=== PATIENT | female | born 1990 | race African-American/Black ===

== ENCOUNTER 2016-09-17 23:35 | Emergency (ER) | payer MEDICAID ==
[~2016-09-17] VITALS: Ht 154.9 cm; Wt 76.0 kg
[~2016-09-17 23:35] MED LIST: ERYT400T4 PO; FERR325T PO; MECL-62 PO
[2016-09-17 23:37] VITALS: BP 118/78; PULSE 120; RESP 20; TEMP 98.3; O2SAT 98
[2016-09-18] MEDS ORDERED: SODIUM CHLOR 0.9% 1000 ML INJ 1,000 ML IV ONE ×2
[2016-09-18] MEDS ORDERED: ONDANSETRON HCL 4 MG/2 ML VIAL IV PUSH ONE
[2016-09-18] MEDS ORDERED: THIAMINE INJ 100 MG in SODIUM CHLORIDE 0.9% INJ 100 ML IV ONE ×2
[2016-09-18 00:30] LABS: AUTOMATED NEUTROPHIL # 10.4 TH/MM3 (1.8-7.7); BASOPHIL % 0.3 % (0.0-2.0); EOSINOPHIL % 0.1 % (0.0-4.0); HEMATOCRIT 31.6 % (35.0-46.0); HEMO FLAGS DIFF FINAL; LYMPH % 9.4 % (9.0-44.0); LYMPHOCYTE # 1.2 TH/MM3 (1.0-4.8); MEAN CELL VOLUME 84.5 FL (80.0-100.0); MEAN CORPUSCULAR HEMOGLOBIN 28.5 PG (27.0-34.0); MEAN CORPUSCULAR HGB CONC 33.8 % (32.0-36.0); MONO % 10.1 % (0.0-8.0); NEUT % 80.1 % (16.0-70.0); PLATELET COUNT 235 TH/MM3 (150-450); RED BLOOD COUNT 3.74 MIL/MM3 (4.00-5.30); RED CELL DISTRIBUTION WIDTH 14.4 % (11.6-17.2)
[2016-09-18 01:04] LABS: BACTERIA, URINE MANY /hpf; BLOOD, URINE LARGE (NEG); COMMENT (UR) CULTURE INDICATED; CULTURE IF INDICATED CULTURE INDICATED; GLUCOSE,URINE 300 mg/dL (NEG); KETONE, URINE 150 mg/dL (NEG); MUCUS URINE FEW /lpf (OCC); NITRITE,URINE NEG (NEG); SQUAMOUS EPITHELIAL CELL URINE 6 /hpf (0-5); URINE COLOR YELLOW (YELLW/STRAW)
[2016-09-18 01:12] LABS: ALT (GPT) 18 U/L (10-53); ANION GAP 12 MEQ/L (5-15); AST (GOT) 16 U/L (15-37); BICARBONATE 20.8 MEQ/L (21.0-32.0); BLOOD UREA NITROGEN 5 MG/DL (7-18); CHLORIDE 104 MEQ/L (98-107); GLOMERULAR FILTRATION RATE 121 ML/MIN (>89); POTASSIUM 3.4 MEQ/L (3.5-5.1); SODIUM (NA) 137 MEQ/L (136-145)
[2016-09-18 01:15] LABS: ALKALINE PHOSPHATASE 81 U/L (45-117); TOTAL BILIRUBIN ADULT 0.6 MG/DL (0.2-1.0)
[2016-09-18] MEDS ORDERED: ZOFR4TAB3 SL (01:39)
--- NOTE | 2016-09-18 01:40 | PD ---
HPI Chief Complaint: GI Complaint Time Seen by Provider: 23:50 Travel History International Travel<30 days: No Contact w/Intl Traveler<30days: No Traveled to known affect area: No History of Present Illness HPI Social 26-year-old woman who presents to the emergency department, 2 para 1 at about 30 weeks gestation presenting with nausea vomiting and flulike symptoms. She was seen at the hospital yesterday was diagnosed with influenza based on a nasal wash. She states that she's had ongoing nausea vomiting and unable to keep anything down. She isn't really felt the baby move. She does presented to the emergency department. No real bleeding cramping or leakage of fluid. No other complaints. History Past Medical History Medical History: Denies Significant Hx Tetanus Vaccination: Unknown Influenza Vaccination: No : 3 Para: 1 Social History Alcohol Use: No Tobacco Use: No Allergies-Medications (Allergen,Severity, Reaction): Coded Allergies: No Known Allergies (Verified , 09/17/16) Reported Meds & Prescriptions Reported Meds & Active Scripts Active No Active Prescriptions or Reported Medications Review of Systems Except as stated in HPI: all other systems reviewed are Neg Physical Exam Narrative GENERAL: Well-appearing 26-year-old woman. SKIN: Warm and dry. HEAD: Atraumatic. Normocephalic. NECK: Trachea midline. No JVD. CARDIOVASCULAR: Regular rate and rhythm. No murmur appreciated. RESPIRATORY: No accessory muscle use. Clear to auscultation. Breath sounds equal bilaterally. GASTROINTESTINAL: Abdomen soft, non-tender, nondistended. Gravid. Hepatic and splenic margins not palpable. MUSCULOSKELETAL: No obvious deformities. No edema. NEUROLOGICAL: Awake and alert. No obvious cranial nerve deficits. Motor grossly within normal limits. Normal speech. PSYCHIATRIC: Appropriate mood and affect; insight and judgment normal. Data Data Last Documented VS Vital Signs Date Time Temp Pulse Resp B/P Pulse Ox O2 Delivery O2 Flow Rate FiO2 09/17/16 23:37 98.3 120 20 118/78 98 Orders Complete Blood Count With Diff (09/17/16 23:55) Comprehensive Metabolic Panel (09/17/16 23:55) Iv Access Insert/Monitor (09/17/16 23:55) Urinalysis - C+S If Indicated (09/17/16 23:55) Ed Poc Ultrasound (09/17/16 ) Sodium Chlor 0.9% 1000 Ml Inj (Ns 1000 M (09/18/16 00:00) Sodium Chlor 0.9% 1000 Ml Inj (Ns 1000 M (09/18/16 00:00) Thiamine Inj (Thiamine Inj) (09/18/16 00:00) Ondansetron Inj (Zofran Inj) (09/18/16 00:00) Urine Culture (09/18/16 00:16) Labs Laboratory Tests Test 09/18/16 00:16 White Blood Count 13.0 TH/MM3 Red Blood Count 3.74 MIL/MM3 Hemoglobin 10.7 GM/DL Hematocrit 31.6 % Mean Corpuscular Volume 84.5 FL Mean Corpuscular Hemoglobin 28.5 PG Mean Corpuscular Hemoglobin 33.8 % Concent Red Cell Distribution Width 14.4 % Platelet Count 235 TH/MM3 Mean Platelet Volume 8.9 FL Neutrophils (%) (Auto) 80.1 % Lymphocytes (%) (Auto) 9.4 % Monocytes (%) (Auto) 10.1 % Eosinophils (%) (Auto) 0.1 % Basophils (%) (Auto) 0.3 % Neutrophils # (Auto) 10.4 TH/MM3 Lymphocytes # (Auto) 1.2 TH/MM3 Monocytes # (Auto) 1.3 TH/MM3 Eosinophils # (Auto) 0.0 TH/MM3 Basophils # (Auto) 0.0 TH/MM3 CBC Comment DIFF FINAL Differential Comment Urine Color YELLOW Urine Turbidity HAZY Urine pH 6.0 Urine Specific [place] 1.026 Urine Protein 100 mg/dL Urine Glucose (UA) 300 mg/dL Urine Ketones 150 mg/dL Urine Occult Blood LARGE Urine Nitrite NEG Urine Bilirubin NEG Urine Urobilinogen 2.0 MG/DL Urine Leukocyte Esterase TRACE Urine RBC /hpf Urine WBC 6 /hpf Urine Squamous Epithelial 6 /hpf Cells Urine Bacteria MANY /hpf Urine Mucus FEW /lpf Microscopic Urinalysis Comment CULTURE INDICATED Sodium Level 137 MEQ/L Potassium Level 3.4 MEQ/L Chloride Level 104 MEQ/L Carbon Dioxide Level 20.8 MEQ/L Anion Gap 12 MEQ/L Blood Urea Nitrogen 5 MG/DL Creatinine 0.71 MG/DL Estimat Glomerular Filtration 121 ML/MIN Rate Random Glucose 116 MG/DL Calcium Level 8.9 MG/DL Total Bilirubin 0.6 MG/DL Aspartate Amino Transf 16 U/L (AST/SGOT) Alanine Aminotransferase 18 U/L (ALT/SGPT) Alkaline Phosphatase 81 U/L Total Protein 7.4 GM/DL Albumin 2.7 GM/DL [facility] Medical Decision Making Medical Screen Exam Complete: Yes Emergency Medical Condition: Yes Interpretation(s) LABS: CBC remarkable for mild leukocytosis, mild anemia. CMP is unremarkable. UA with innumerable red blood cells. Culture pending. Differential Diagnosis Dehydration, influenza, myalgias, other Narrative Course Medical decision making 26 year-old woman at about 30 weeks a station presents with nausea vomiting in setting of known influenza. Visual looks well. Does not appear overtly dehydrated. Bedside ultrasound reassuring. Labs are unremarkable. She'll little bit of spotting and the blood in her urine is likely contaminated. Culture is pending. Recommend outpatient follow-up with her OB. Diagnosis Primary Impression: Nausea & vomiting Qualified Code: R11.2 - Non-intractable vomiting with nausea, unspecified vomiting type Additional Impressions: Influenza Qualified Code: Z3A.30 - 30 weeks gestation of Additional Instructions: Follow-up with your OB doctor, preferably by phone if you're still sick. Return to the emergency department for any new or worsening symptoms. Take Tamiflu as prescribed. Use Zofran as needed for nausea or vomiting. Med/Other Pt SpecificInfo: Prescription(s) given Scripts Ondansetron Odt (Zofran Odt)4 Mg Tab4 Mg SL Q8HR PRN (Nausea/Vomiting) #15 TAB May substitute non-ODT form. Prov:Travis Edgar MD 09/18/16 Disposition: 01 DISCHARGE HOME Condition: Stable Travis Edgar MD Sep 18, 2016 01:40
[2016-09-18] MEDS ORDERED: FAMOTIDINE 20 MG TAB PO ONE (01:45)
[2016-09-18] MEDS ORDERED: ONDANSETRON ODT 4 MG TAB PO ONE (01:45)
== END 2016-09-18 02:43 | disposition home or self-care (01) ==
LOC: NEPE 23:35
DX: O21.8 Other vomiting complicating pregnancy (principal); J10.89 Influenza due to other identified influenza virus with other manifestations; O99.513 Diseases of the respiratory system complicating pregnancy, third trimester; Z3A.30 30 weeks gestation of pregnancy; B96.89 Other specified bacterial agents as the cause of diseases classified elsewhere
CPT/HCPCS: 80053; 81001; 85025; 87086; 96365; 96375; 99284; J2405; J3411; J7030

== ENCOUNTER 2016-11-11 21:16 | Emergency (ER) | payer MEDICAID ==
[~2016-11-11 21:16] MED LIST changes: -ERYT400T4 PO; -FERR325T PO; -MECL-62 PO; +ZOFR4TAB3 SL
[2016-11-11] MEDS ORDERED: oxyCODONE/ACETAMINOPHEN 10 MG/325 MG TAB PO STA (23:53)
[2016-11-11] MEDS ORDERED: OXYC1TAB35 PO (23:56)
--- NOTE | 2016-11-12 00:03 | PD ---
HPI Chief Complaint Pulled her groin muscle Date Seen: Nov 11, 2016 Time Seen: 23:57 Travel History International Travel<30 Days: No Contact w/Intl Traveler<30Days: No Known Affected Area: No History of Present Illness HPI 26-year-old who is at 34 weeks and 4 days. Patient was running from a dog and slipped and fell like she did the splits. A short time thereafter she felt out quite a bit of pain in the groin and between her thighs in her muscles. This had time she has been fairly stiff making it difficult for her to walk. Denies abdominal trauma, and patient did not actually fall, and denies vaginal bleeding or discharge. She's had great movement Para: 1 : 2 Last Menstrual Period: Nov 11, 2016 History Obstetric History Obstetric History section Past Surgical History Narrative Surgical section Family History Family History: Negative Social History Alcohol Use: No Tobacco Use: No Substance Abuse: No Allergies-Medications (Allergen,Severity, Reaction): Coded Allergies: No Known Allergies (Verified , 09/17/16) Home Meds Active Scripts Oxycodone-Acetaminophen 7.5-325 mg Tab1 Tab PO Q6H PRN (PAIN) #10 TAB Ref 0 Prov:Celia Umana MD 11/11/16 Ondansetron Odt (Zofran Odt)4 Mg Tab4 Mg SL Q8HR PRN (Nausea/Vomiting) #15 TAB May substitute non-ODT form. Prov:Travis Edgar MD 09/18/16 Review of Systems Except as stated in HPI: all other systems reviewed are Neg Physical Exam Narrative GENERAL: Well-nourished, well-developed patient. SKIN: Warm and dry. HEAD: Normocephalic and atraumatic. EYES: No scleral icterus. No injection or drainage. ENT: No nasal drainage noted. Mucous membranes pink. Airway patent. NECK: Supple, trachea midline. No JVD. CARDIOVASCULAR: Regular rate and rhythm without murmurs, gallops, or rubs. RESPIRATORY: Breath sounds equal bilaterally. No accessory muscle use. BREASTS: Bilateral exam showed no masses , no retractions, no nipple discharge. ABDOMEN/GI: Abdomen soft, non-tender, bowel sounds present, no rebound, no guarding Gravid to [-34] weeks size Fundal Height: [-] GENITOURINARY: External Genitalia: intact and normal in appearance BUS glands: [-Normal] rest of exam was deferred Cervix: [-] Dilatation: [-] Effacement: [-] Station: [-] Presentation: [-] Membranes: [intact or ruptured] Uterine Contractions: [-] FHT's: Category: [1-] Baseline: [140-] Reactive: Moderate Variability: Moderate Decels: Absent EXTREMITIES: No cyanosis or edema. Patient with tenderness in the abductor muscles in the groin. She is tender she tries to pull the legs apart. No ecchymosis is noted no contractions are palpated. BACK: Nontender without obvious deformity. No CVA tenderness. NEUROLOGICAL: Awake and alert. Motor and sensory grossly within normal limits. Five out of 5 muscle strength in all muscle groups. Normal speech. Data Data Orders Oxycodone-Acetamin 10-325 Mg (Percocet 1 (11/11/16 23:53) MDM Plan 26-year-old female at 34 weeks and 4 days with muscle strain and soreness She was given Percocet here in the OB ED with a prescription for 10 pills to go home with She is to take the Percocet minimally and I would prefer her to use Tylenol Ice and heat with stretching and gradual ambulation is recommended Follow-up with her OB provider as scheduled Diagnosis Diagnosis: Primary Impression: Muscle strain Additional Impressions: 34 weeks gestation of Previous section Disposition: 01 DISCHARGE HOME Scripts Oxycodone-Acetaminophen 7.5-325 mg Tab1 Tab PO Q6H PRN (PAIN) #10 TAB Ref 0 Prov:Celia Umana MD 11/11/16 Celia Umana MD Nov 12, 2016 00:03
== END 2016-11-12 22:17 | disposition home or self-care (01) ==
LOC: HOBED 21:16
DX: O9A.213 Injury, poisoning and certain other consequences of external causes complicating pregnancy, third trimester (principal); O34.219 Maternal care for unspecified type scar from previous cesarean delivery; T14.8 Other injury of unspecified body region; W01.0XXA Fall on same level from slipping, tripping and stumbling without subsequent striking against object, initial encounter; Y93.02 Activity, running; Z3A.34 34 weeks gestation of pregnancy
CPT/HCPCS: 99284

== ENCOUNTER 2016-11-29 12:23 | Emergency (ER) | payer MEDICAID ==
[~2016-11-29 12:23] MED LIST changes: +OXYC1TAB35 PO
--- NOTE | 2016-11-29 13:09 | PD ---
HPI Chief Complaint contractions Date Seen: Nov 29, 2016 ([address] MD R2) Travel History International Travel<30 Days: No Contact w/Intl Traveler<30Days: No (Orville Street MD R2) History of Present Illness HPI Ms. Curry is a 26 yo at 37 1/7 weeks (DIANNA 12/19/2016) who presents with complaint of contractions. Patient reports a contractions began at approximately 5 AM and gradually increased in severity. Patient unsure of her vomiting contractions but states they're regular. Patient thinks she may of been leaking vaginal fluid since onset of contractions. Patient denies vaginal bleeding. Patient reports normal movement. Patient denies headache, reports mild visual blurriness, denies shortness of breath, denies chest pain, denies dysuria, denies other symptoms at this time with exception of mild leg swelling. Per patient and review of EMR, patient denies US abnormalities. Patient had CS 6 years ago for arrest of descent after induction for oligohydramnios. Patient also had history of GDM with prior ; she states that she did not get tested this . Patient unaware of prior lab results. Para: 1 : 2 (Orville [address] MD R2) History Past Medical History Narrative Medical GDM Medical History: Denies Significant Hx (Orville Street MD R2) Obstetric History Obstetric History CS 05/2010- arrest of labor, oligohydramnios (low transverse incision) GDM with prior gestation (Orville Street MD R2) Past Surgical History Narrative Surgical CS x1 in [address] MD R2) Family History Narrative Family History DM- diffusely in family (Orville Street MD R2) Social History Alcohol Use: No Tobacco Use: No Substance Abuse: No (Orville Street MD R2) Allergies-Medications (Allergen,Severity, Reaction): Coded Allergies: No Known Allergies (Verified , 09/17/16) Home Meds Active Scripts Oxycodone-Acetaminophen 7.5-325 mg Tab1 Tab PO Q6H PRN (PAIN) #10 TAB Ref 0 Prov:Celia Umana MD 11/11/16 Ondansetron Odt (Zofran Odt)4 Mg Tab4 Mg SL Q8HR PRN (Nausea/Vomiting) #15 TAB May substitute non-ODT form. Prov:Travis Edgar MD 09/18/16 Review of Systems General / Constitutional: No: Fever, Chills Eyes: Blurred Vision (mild) HENT: No: Headaches Cardiovascular: No: Chest Pain or Discomfort Respiratory: No: Short of Breath Gastrointestinal: Abdominal Pain (with contractions), No: Nausea, Vomiting Genitourinary: No: Urgency, Dysuria Skin: No Rash (Orville Street MD R2) Physical Exam T 98 BP 133/82 HR 101 RR 19 Narrative GENERAL: Well-nourished, well-developed patient. SKIN: Warm and dry. HEAD: Normocephalic and atraumatic. EYES: No scleral icterus. No injection or drainage. ENT: No nasal drainage noted. Mucous membranes pink. Airway patent. NECK: Supple, trachea midline. No JVD. CARDIOVASCULAR: Regular rate and rhythm without murmurs. Normal perfusion RESPIRATORY: CTAB, normal rate ABDOMEN/GI: Abdomen soft, non-tender, bowel sounds present, no rebound, no guarding. Gravid EXTREMITIES: No cyanosis or edema. BACK: Nontender without obvious deformity. No CVA tenderness. NEUROLOGICAL: Awake and alert. Motor and sensory grossly within normal limits. Five out of 5 muscle strength in all muscle groups. Normal speech. GENITOURINARY: External Genitalia: intact and normal in appearance Cervix: Dilatation: loose 1 cm Effacement: 50% Station: -2 Presentation: V Membranes: Intact Uterine Contractions: Y, q 2-6min FHT's: Category: 1 Baseline:135 Reactive: Y Variability: Mod Decels: None (Orville Street MD R2) Data Data Vital Signs Reviewed: Yes (Orville Street MD R2) MDM Medical Record Reviewed: Yes Narrative Course / MDM 26 yo at 37 1/7 weeks (DIANNA 12/19/2016) who presents with complaint of contractions -PSH of CS in 2009 -Contractions q2-6min -Cervix 1/50%/-2 -GBS unknown -PMH of GDM, not tested this Plan: -Continue EFM -Will obtain labs -Will obtain rapid GBS -Discussed with patient vs. repeat CS; patient currently deciding between options Interval History: Patient monitored for greater than 1 hour on CTG; patient with persistent contractions every 3 at 5 minutes. Category 1 rhythm repeat cervical check-unchanged, 1 cm dilation Updated plan: Suspect early labor; will discharge patient home with labor precautions. Patient to return with any new symptoms such as ROM or vaginal bleeding or worsening pain with contractions Discussed repeat delivery versus ; patient undecided at this time. Patient agreed to being scheduled for delivery versus nonpharmacologic induction at 40 weeks GA GBS still pending (Orville Street MD R2) Diagnosis Diagnosis: Primary Impression: 37 weeks gestation of Additional Impression: Uterine contractions during Disposition: DISCHARGE HOME Condition: Stable Patient Instructions: General Instructions, Early Labor Signs (ED) Remarks When scheduling potential CS, patient decided that she would like like ( Orville Street MD R2) Collaborating MD Comments Patient with h/o prior (low transverse). False labor at this time and will discharge. Discussed the pros and cons of including the 1% risk of uterine rupture. Patient will f/u with her OB provider at this time. (Celia Umana MD) Orville Street MD R2 Nov 29, 2016 13:09 Celia Umana MD Nov 29, 2016 20:57
[2016-11-29 16:21] LABS: BACTERIA, URINE MOD /hpf; BLOOD, URINE NEG (NEG); COMMENT (UR) CULTURE INDICATED; CULTURE IF INDICATED CULTURE INDICATED; GLUCOSE,URINE NEG (NEG); KETONE, URINE 150 mg/dL (NEG); MUCUS URINE FEW /lpf (OCC); NITRITE,URINE NEG (NEG); SQUAMOUS EPITHELIAL CELL URINE 4 /hpf (0-5); URINE COLOR YELLOW (YELLW/STRAW)
== END 2016-11-29 15:19 | disposition home or self-care (01) ==
LOC: HOBED 12:23
DX: O62.9 Abnormality of forces of labor, unspecified (principal); O47.1 False labor at or after 37 completed weeks of gestation; O34.211 Maternal care for low transverse scar from previous cesarean delivery; R82.99 Other abnormal findings in urine; B96.20 Unspecified Escherichia coli [E. coli] as the cause of diseases classified elsewhere; Z3A.37 37 weeks gestation of pregnancy
CPT/HCPCS: 59025; 81001; 84112; 87077; 87086; 87150; 87186

== ENCOUNTER 2016-11-30 14:28 | Emergency (ER) | payer MEDICAID ==
--- NOTE | 2016-11-30 15:49 | PD ---
HPI Chief Complaint painful contractions Date Seen: Nov 30, 2016 Time Seen: 15:48 Travel History International Travel<30 Days: No Contact w/Intl Traveler<30Days: No History of Present Illness HPI 26 y/o -[place] female at 37/2 weeks presents with painful contractions. Pt was seen in ED yesterday with same complaint and discharged home after negative signs of labor and unchanged cervical exam. Pt states that overnight, her contractions worsened, specifically with pain. States they are occurring every 5-7 minutes. Denies any vaginal bleeding, loss of fluids. Endorses movement. Otherwise, no complaints. Denies any headache, blurry vision, dysuria, edema, chest pain, SOB. Pt [facility] follow with [facility], but does not follow-up frequently. Para: 1 : 2 History Past Medical History Medical History: Denies Significant Hx Obstetric History Obstetric History -Prior for arrest of labor, oligohydramnios Past Surgical History Narrative Surgical in 2009 Family History Narrative Family History DM Social History Alcohol Use: No Tobacco Use: No Substance Abuse: No Allergies-Medications (Allergen,Severity, Reaction): Coded Allergies: No Known Allergies (Verified , 11/30/16) Home Meds Active Scripts Oxycodone-Acetaminophen 7.5-325 mg Tab1 Tab PO Q6H PRN (PAIN) #10 TAB Ref 0 Prov:Celia Umana MD 11/11/16 Ondansetron Odt (Zofran Odt)4 Mg Tab4 Mg SL Q8HR PRN (Nausea/Vomiting) #15 TAB May substitute non-ODT form. Prov:Travis Edgar MD 09/18/16 Review of Systems General / Constitutional: Weight Gain, No: Fever, Chills Eyes: No: Blurred Vision, Visual changes HENT: No: Headaches, Lightheadedness Cardiovascular: No: Irregular Rhythm, Chest Pain or Discomfort, Palpitations, Syncope, Edema Respiratory: No: Cough, Short of Breath Gastrointestinal: No: Nausea, Vomiting, Diarrhea, Constipation Genitourinary: Pelvic Pain, No: Urgency, Dysuria, Vaginal Bleeding Musculoskeletal: No: Limited ROM, Weakness Skin: No Rash, No Itching Neurologic: No: Weakness, Dizziness Psychiatric: No: Anxiety, Depression Physical Exam Narrative GENERAL: Well-nourished, well-developed patient. SKIN: Warm and dry. HEAD: Normocephalic and atraumatic. EYES: No scleral icterus. No injection or drainage. ENT: No nasal drainage noted. Mucous membranes pink. Airway patent. NECK: Supple, trachea midline. No JVD. CARDIOVASCULAR: Regular rate and rhythm without murmurs, gallops, or rubs. RESPIRATORY: Breath sounds equal bilaterally. No accessory muscle use. ABDOMEN/GI: Abdomen soft, non-tender, bowel sounds present, no rebound, no guarding Gravid to 37 weeks size GENITOURINARY: External Genitalia: intact and normal in appearance Dilatation: 0 Effacement: 50 Station: -3 Presentation: Vertex Membranes: Intact Uterine Contractions: Occasional FHT's: Category: 1 Baseline: 150 Reactive: Yes Variability: Moderate Decels: None EXTREMITIES: No cyanosis or edema. BACK: Nontender without obvious deformity. No CVA tenderness. NEUROLOGICAL: Awake and alert. Motor and sensory grossly within normal limits. Five out of 5 muscle strength in all muscle groups. Normal speech. Data Data Vital Signs Reviewed: Yes [facility] Medical Record Reviewed: Yes Interpretation(s) 26 yo at 37/2 weeks presents with complaint of contractions Occasional contractions. Cervical exam: 50/-2 Category 1 FHT GBS positive -Give 50mcg Fentanyl IM for pain -Discharge home, suspect early labor -Per yesterday's discussion, pt want to proceed with -F/u with OB as scheduled -Return to ED if new symptoms, including ROM, vaginal bleeding, consistent contractions Diagnosis Diagnosis: Primary Impression: 37 weeks gestation of Additional Impression: Uterine contractions during Disposition: 01 DISCHARGE HOME Condition: Stable Patient Instructions: Labor (ED), General Instructions, Early Labor Signs (ED) Eren Armendariz MD R1 Nov 30, 2016 15:49
--- NOTE | 2016-11-30 17:04 | PD ---
History of Present Illness Date Seen: Nov 30, 2016 History of Present Illness This patient is 26-year-old black female previous now 37 weeks who presents planning of contraction pain abdominal pain. She was here yesterday with same complaint. She denies bleeding or rupture the membranes. Baby is active contractions not regularly seen. Heart rate tracing is reactive. Cervix is closed plan to give the patient IM injection of fentanyl for pain and have her rest at home using Tylenol fluids and a heating pad. She was seen along with the family medicine director internal communications. who did her evaluation I agree with his assessment and plan. Jean Pierre Acevedo II, MD Nov 30, 2016 17:04
[2016-11-30 17:06] LABS: BACTERIA, URINE RARE /hpf; BLOOD, URINE NEG (NEG); COMMENT (UR) CULTURE INDICATED; CULTURE IF INDICATED CULTURE INDICATED; GLUCOSE,URINE TRACE mg/dL (NEG); KETONE, URINE 10 mg/dL (NEG); MUCUS URINE FEW /lpf (OCC); NITRITE,URINE NEG (NEG); PH, URINE 7.5 (5.0-8.5); SQUAMOUS EPITHELIAL CELL URINE 2 /hpf (0-5); TRANSITIONAL EPI CELLS, URINE <1 /hpf; URINE COLOR YELLOW (YELLW/STRAW)
[2016-11-30 18:23] LABS: AMPHETAMINE, URINE NEG (NEG); BARBITURATES, URINE NEG (NEG); COCAINE, URINE NEG (NEG)
[2016-12-07 12:38] LABS: PHENCYCLIDINE URINE NEG (NEG)
[2016-12-07 12:39] LABS: BATH SALTS (MDPV) UR NEG (NEG); ECSTASY (MDMA) UR NEG (NEG); GABAPENTIN UR NEG (NEG); HEROIN (6-ACETYLMORPHINE) UR NEG (NEG); HYDROMORPHONE U NEG (NEG); K2 SPICE UR NEG (NEG); OBMETHADONE UR NEG (NEG); OXYCODONE (PERCODAN) NEG (NEG)
== END 2016-11-30 16:00 | disposition home or self-care (01) ==
LOC: HOBED 14:28
DX: O47.1 False labor at or after 37 completed weeks of gestation (principal); O23.43 Unspecified infection of urinary tract in pregnancy, third trimester; B96.20 Unspecified Escherichia coli [E. coli] as the cause of diseases classified elsewhere; Z3A.37 37 weeks gestation of pregnancy
CPT/HCPCS: 59025; 80307; 81001; 84112; 87077; 87086; 87186; 96372; 99284; G0481; J3010

== ENCOUNTER 2016-12-01 08:57 | Inpatient (IN) | payer MEDICAID ==
[2016-12-01] VITALS (48 sets, daily range): BP systolic 101–149; BP diastolic 62–93; PULSE 62–165; RESP 16–18; TEMP 98–99
[2016-12-01] MEDS ORDERED: LACTATED RINGER'S 1000 ML INJ 1,000 ML IV PRN (09:25)
[2016-12-01] MEDS ORDERED: MINERAL OIL 10 ML VIAL TOPICAL PRN (09:30)
[2016-12-01] MEDS ORDERED: LIDOCAINE HCL 1% 50 ML VIAL I-DERMAL PRN (09:30)
[2016-12-01] MEDS ORDERED: OXYTOCIN 30 UNITS-500ML PREMIX 500 ML IV ONE (09:30)
[2016-12-01] MEDS ORDERED: SODIUM CHLORID 0.9% 500 ML INJ 500 ML IV PRN (09:30)
[2016-12-01] MEDS ORDERED: ONDANSETRON HCL 4 MG/2 ML VIAL IV PRN (09:30)
[2016-12-01] MEDS ORDERED: CITRIC ACID-SODIUM CITRATE LIQ 30 ML UDC PO SCH (09:30)
[2016-12-01] MEDS ORDERED: LIDOCAINE HCL 1% 50 ML VIAL INFIL PRN (09:30)
--- NOTE | 2016-12-01 09:41 | PD ---
History of Present Illness Date Seen: Dec 01, 2016 History of Present Illness 37 wk IUP PCS for now with SROM and labor , cx 6 cm/100/-1 , FHR reactive , CTXs regular . Plan to admit for delivery . Jean Pierre Acevedo II, MD Dec 01, 2016 09:41
[2016-12-01] MEDS ORDERED: SODIUM CHLOR 0.9% 1000 ML INJ 1,000 ML IV PRN (09:45)
--- NOTE | 2016-12-01 09:45 | PD ---
HPI Chief Complaint leaking of fluids Date Seen: Dec 01, 2016 Time Seen: 09:19 Travel History International Travel<30 Days: No Contact w/Intl Traveler<30Days: No History of Present Illness HPI 26 y/o -Turk[place] female at 37/3 weeks presents for leakage of fluids. Of note, pt was seen the last 2 days in the ED for contractions, but discharged home with no cervical change and irregular contractions. Pt presents this morning to ED stating she felt some leakage of fluids late last night after midnight. Endorses painful contractions every few minutes or so. Denies vaginal bleeding. Endorses movement. Otherwise, no complaints. No chest pain, SOB, leg pain. [facility] with [facility]. Para: 1 : 2 History Past Medical History Medical History: Denies Significant Hx Obstetric History Obstetric History -Prior for arrest of labor, oligohydramnios Past Surgical History Narrative Surgical C/S in 2009 Family History Narrative Family History DM Social History Alcohol Use: No Tobacco Use: No Substance Abuse: No Allergies-Medications (Allergen,Severity, Reaction): Coded Allergies: No Known Allergies (Verified , 11/30/16) Home Meds Active Scripts Oxycodone-Acetaminophen 7.5-325 mg Tab1 Tab PO Q6H PRN (PAIN) #10 TAB Ref 0 Prov:Celia Umana MD 11/11/16 Ondansetron Odt (Zofran Odt)4 Mg Tab4 Mg SL Q8HR PRN (Nausea/Vomiting) #15 TAB May substitute non-ODT form. Prov:Travis Edgar MD 09/18/16 Review of Systems General / Constitutional: Weight Gain, No: Fever, Chills HENT: No: Headaches, Lightheadedness Cardiovascular: No: Chest Pain or Discomfort, Palpitations Respiratory: No: Cough Gastrointestinal: Nausea, Vomiting, No: Diarrhea Genitourinary: Pelvic Pain, No: Dysuria, Vaginal Bleeding Skin: No Rash, No Itching Neurologic: No: Weakness, Dizziness Physical Exam Narrative GENERAL: Well-nourished, well-developed patient. SKIN: Warm and dry. HEAD: Normocephalic and atraumatic. EYES: No scleral icterus. No injection or drainage. ENT: No nasal drainage noted. Mucous membranes pink. Airway patent. NECK: Supple, trachea midline. No JVD. CARDIOVASCULAR: Regular rate and rhythm without murmurs, gallops, or rubs. RESPIRATORY: Breath sounds equal bilaterally. No accessory muscle use. ABDOMEN/GI: Abdomen soft, non-tender, bowel sounds present, no rebound, no guarding Gravid to 37 weeks size GENITOURINARY: External Genitalia: intact and normal in appearance Dilatation: 6 Effacement: 100 Station: 0 Presentation: vertex Membranes: ruptured Uterine Contractions: FHT's: Category: 1 Baseline: 135 Reactive: yes Variability: moderate Decels: none EXTREMITIES: No cyanosis or edema. BACK: Nontender without obvious deformity. No CVA tenderness. NEUROLOGICAL: Awake and alert. Motor and sensory grossly within normal limits. Five out of 5 muscle strength in all muscle groups. Normal speech. Data Data Vital Signs Reviewed: Yes Orders Ob (2e) Additional Admit Info (12/01/16 09:26) Admit To Inpatient (12/01/16 ) Vital Signs (Adult) .Per protocol (12/01/16 09:25) Heart (12/01/16 09:25) Amnioinfusion (12/01/16 09:25) Diet Liquid (12/01/16 Breakfast) Lactated Ringer's 1000 Ml Inj (Lr 1000 M (12/01/16 09:25) Lactated Ringer's 1000 Ml Inj (Lr 1000 M (12/01/16 09:25) Sodium Chlorid 0.9% 500 Ml Inj (Ns 500 M (12/01/16 09:30) Sodium Chlor 0.9% 1000 Ml Inj (Ns 1000 M (12/01/16 09:45) Lidocaine 1% Inj (50 Ml) (Xylocaine 1% I (12/01/16 09:30) Citric Acid-Sodium Citrate Liq (Bicitra (12/01/16 09:30) Ondansetron Inj (Zofran Inj) (12/01/16 09:30) Fentanyl Inj (Fentanyl Inj) (12/01/16 09:30) Fentanyl Inj (Fentanyl Inj) (12/01/16 09:30) Penicillin G Potassium Inj (Pfizerpen-G (12/01/16 09:30) Penicillin G Potassium Inj (Pfizerpen-G (12/01/16 13:30) Complete Blood Count With Diff (12/01/16 09:25) Hold Clot (12/01/16 09:25) Abo/Rh Blood Type (12/01/16 09:25) Urinalysis - C+S If Indicated (12/01/16 09:25) Resp Oxygen Non Rebreathe Mask (12/01/16 ) ^ Epidural / Intrathecal Infus (12/01/16 09:25) Oxytocin 30 Units-500ml Premix (Pitocin (12/01/16 09:30) Lidocaine 1% Inj (50 Ml) (Xylocaine 1% I (12/01/16 09:30) Light Mineral Oil (Muri-Lube Oil) (12/01/16 09:30) Inpatient Certification (12/01/16 ) [facility] Medical Record Reviewed: Yes Interpretation(s) 26 y/o at 37/3 presents for leakage of fluids Visible leakage of fluids on exam. Amnisure positive. Cervical exam: 6/100/0 GBS positive. Category 1 FHT Plan -Admit to labor and delivery -History of C/S: Pt wishes to proceed with . Risks discussed with patient and she would like to proceed. -GBS positive: start IV PCN -Continuous monitoring -Anticipate vaginal delivery Diagnosis Diagnosis: Primary Impression: 37 weeks gestation of Eren Armendariz MD R1 Dec 01, 2016 09:45
[2016-12-01] MEDS: LACTATED RINGER'S 1000 ML INJ 1,000 ML IV SCH ×2 (09:49→12:52)
[2016-12-01 09:52] LABS: AUTOMATED NEUTROPHIL # 4.2 TH/MM3 (1.8-7.7); BASOPHIL % 0.2 % (0.0-2.0); EOSINOPHIL % 0.8 % (0.0-4.0); HEMATOCRIT 32.6 % (35.0-46.0); HEMO FLAGS DIFF FINAL; LYMPH % 22.9 % (9.0-44.0); LYMPHOCYTE # 1.4 TH/MM3 (1.0-4.8); MEAN CELL VOLUME 83.3 FL (80.0-100.0); MEAN CORPUSCULAR HEMOGLOBIN 27.3 PG (27.0-34.0); MEAN CORPUSCULAR HGB CONC 32.7 % (32.0-36.0); MONO % 9.3 % (0.0-8.0); NEUT % 66.8 % (16.0-70.0); PLATELET COUNT 239 TH/MM3 (150-450); RED BLOOD COUNT 3.91 MIL/MM3 (4.00-5.30); RED CELL DISTRIBUTION WIDTH 15.3 % (11.6-17.2); WHITE BLOOD COUNT 6.2 TH/MM3 (4.0-11.0)
[2016-12-01] MEDS ORDERED: fentaNYL 2MCG-BUPIV 0.125% INJ 100 ML ONE (09:56)
[2016-12-01] MEDS ORDERED: PENICILLIN G POTASSIUM INJ 5,000,000 UNITS in SODIUM CHLORIDE 0.9% INJ 100 ML IV ONE (10:00)
--- NOTE | 2016-12-01 11:10 | HHI.HP ---
History & Physical H&P HPI Chief Complaint leaking of fluids Date Seen: Dec 01, 2016 Time Seen: 09:19 Travel History International Travel<30 Days: No Contact w/Intl Traveler<30Days: No History of Present Illness HPI 26 y/o -[place] female at 37/3 weeks presents for leakage of fluids. Of note, pt was seen the last 2 days in the ED for contractions, but discharged home with no cervical change and irregular contractions. Pt presents this morning to ED stating she felt some leakage of fluids late last night after midnight. Endorses painful contractions every few minutes or so. Denies vaginal bleeding. Endorses movement. Otherwise, no complaints. No chest pain, SOB, leg pain. Follows with care for women. Para: 1 : 2 History (Limited) History Past Medical History Medical History: Denies Significant Hx Obstetric History Obstetric History -Prior for arrest of labor, oligohydramnios Past Surgical History Narrative Surgical C/S in 2009 Family History Narrative Family History DM Social History Alcohol Use: No Tobacco Use: No Substance Abuse: No Allergies-Medications Allergies-Medications (Allergen,Severity, Reaction): Coded Allergies: No Known Allergies (Verified , 11/30/16) Home Meds Active Scripts Oxycodone-Acetaminophen 7.5-325 mg Tab1 Tab PO Q6H PRN (PAIN) #10 TAB Ref 0 Prov:Celia Umana MD 11/11/16 Ondansetron Odt (Zofran Odt)4 Mg Tab4 Mg SL Q8HR PRN (Nausea/Vomiting) #15 TAB May substitute non-ODT form. Prov:Travis Edgar MD 09/18/16 ROS Review of Systems General / Constitutional: Weight Gain, No: Fever, Chills HENT: No: Headaches, Lightheadedness Cardiovascular: No: Chest Pain or Discomfort, Palpitations Respiratory: No: Cough Gastrointestinal: Nausea, Vomiting, No: Diarrhea Genitourinary: Pelvic Pain, No: Dysuria, Vaginal Bleeding Skin: No Rash, No Itching Neurologic: No: Weakness, Dizziness Physical Exam Physical Exam Narrative GENERAL: Well-nourished, well-developed patient. SKIN: Warm and dry. HEAD: Normocephalic and atraumatic. EYES: No scleral icterus. No injection or drainage. ENT: No nasal drainage noted. Mucous membranes pink. Airway patent. NECK: Supple, trachea midline. No JVD. CARDIOVASCULAR: Regular rate and rhythm without murmurs, gallops, or rubs. RESPIRATORY: Breath sounds equal bilaterally. No accessory muscle use. ABDOMEN/GI: Abdomen soft, non-tender, bowel sounds present, no rebound, no guarding Gravid to 37 weeks size GENITOURINARY: External Genitalia: intact and normal in appearance Dilatation: 6 Effacement: 100 Station: 0 Presentation: vertex Membranes: ruptured Uterine Contractions: FHT's: Category: 1 Baseline: 135 Reactive: yes Variability: moderate Decels: none EXTREMITIES: No cyanosis or edema. BACK: Nontender without obvious deformity. No CVA tenderness. NEUROLOGICAL: Awake and alert. Motor and sensory grossly within normal limits. Five out of 5 muscle strength in all muscle groups. Normal speech. Data Data Data Vital Signs Reviewed: Yes Orders Ob (2e) Additional Admit Info (12/01/16 09:26) Admit To Inpatient (12/01/16 ) Vital Signs (Adult) .Per protocol (12/01/16 09:25) Heart (12/01/16 09:25) Amnioinfusion (12/01/16 09:25) Diet Liquid (12/01/16 Breakfast) Lactated Ringer's 1000 Ml Inj (Lr 1000 M (12/01/16 09:25) Lactated Ringer's 1000 Ml Inj (Lr 1000 M (12/01/16 09:25) Sodium Chlorid 0.9% 500 Ml Inj (Ns 500 M (12/01/16 09:30) Sodium Chlor 0.9% 1000 Ml Inj (Ns 1000 M (12/01/16 09:45) Lidocaine 1% Inj (50 Ml) (Xylocaine 1% I (12/01/16 09:30) Citric Acid-Sodium Citrate Liq (Bicitra (12/01/16 09:30) Ondansetron Inj (Zofran Inj) (12/01/16 09:30) Fentanyl Inj (Fentanyl Inj) (12/01/16 09:30) Fentanyl Inj (Fentanyl Inj) (12/01/16 09:30) Penicillin G Potassium Inj (Pfizerpen-G (12/01/16 09:30) Penicillin G Potassium Inj (Pfizerpen-G (12/01/16 13:30) Complete Blood Count With Diff (12/01/16 09:25) Hold Clot (12/01/16 09:25) Abo/Rh Blood Type (12/01/16 09:25) Urinalysis - C+S If Indicated (12/01/16 09:25) Resp Oxygen Non Rebreathe Mask (12/01/16 ) ^ Epidural / Intrathecal Infus (12/01/16 09:25) Oxytocin 30 Units-500ml Premix (Pitocin (12/01/16 09:30) Lidocaine 1% Inj (50 Ml) (Xylocaine 1% I (12/01/16 09:30) Light Mineral Oil (Muri-Lube Oil) (12/01/16 09:30) Inpatient Certification (12/01/16 ) MDM MDM Medical Record Reviewed: Yes Interpretation(s) 26 y/o at 37/3 presents for leakage of fluids Visible leakage of fluids on exam. Amnisure positive. Cervical exam: 6/100/0 GBS positive. Category 1 FHT Plan -Admit to labor and delivery -History of C/S: Pt wishes to proceed with . Risks discussed with patient and she would like to proceed. -GBS positive: start IV PCN -Continuous monitoring -Anticipate vaginal delivery Diagnosis Diagnosis: Primary Impression: 37 weeks gestation of Eren Armendariz MD R1 Dec 01, 2016 11:10
--- NOTE | 2016-12-01 11:12 | PD.LABORPN ---
Subjective Subjective Obtained DIPAK, more comfortable Objective Vital Signs Vital Signs Date Time Temp Pulse Resp B/P Pulse Ox O2 Delivery O2 Flow Rate FiO2 12/01/16 10:46 152 101/66 12/01/16 10:23 18 12/01/16 09:46 98.3 Objective Pelvic Exam: 7-8cm/100/0 FHT's: Category: II Baseline: 120 Reactive: accelerations Variability: variable/early decelerations Assessment/Plan Assessment and Plan 37 weeks SANTA Expectant management Received epidural, adjusting patient position discussed IUPC/FSE if needed. Rubina Berry MD Dec 01, 2016 11:12
[2016-12-01 11:29] LABS: BLOOD, URINE SMALL (NEG); COMMENT (UR) CULT NOT INDICATED; CULTURE IF INDICATED CULT NOT INDICATED; GLUCOSE,URINE NEG (NEG); HYALINE CAST, URINE 1 /lpf (RARE); KETONE, URINE 40 mg/dL (NEG); MUCUS URINE FEW /lpf (OCC); NITRITE,URINE NEG (NEG); SQUAMOUS EPITHELIAL CELL URINE 2 /hpf (0-5); URINE COLOR YELLOW (YELLW/STRAW)
[2016-12-01] MEDS ORDERED: OXYTOCIN 30 UNITS-500ML PREMIX 500 ML IV SCH (12:15)
[2016-12-01] MEDS: PENICILLIN G POTASSIUM INJ 2,500,000 UNITS in SODIUM CHLORIDE 0.9% INJ 100 ML IV SCH ×2 (14:00→18:00)
[2016-12-01 14:45] LABS: BLOOD GAS O2 HGB SATURATION 14 % (90-100); CORD BLOOD GAS HCO3 24 mmol/L (21-29); CORD BLOOD GAS PCO2 59 mmHG (34-78); CORD BLOOD GAS PH 7.23 (7.14-7.42); CORD BLOOD GAS PO2 11 mmHG (3.0-40.0); DRAW SITE CORD BLOOD; STAT NO
[2016-12-01] MEDS ORDERED: BENZOCAINE 20% TOPICAL SPRAY 60 ML CAN TOPICAL PRN (14:45)
[2016-12-01] MEDS ORDERED: DOCUSATE SODIUM 50 MG/SENNA 8.6 MG TAB PO PRN (14:45)
[2016-12-01] MEDS ORDERED: oxyCODONE/ACETAMINOPHEN 5 MG/325 MG TAB PO PRN (14:45)
[2016-12-01] MEDS ORDERED: WITCH HAZEL 50%/GLYCERIN 12.5% 40 PAD JAR TOPICAL PRN (14:45)
[2016-12-01] MEDS ORDERED: ALUMINUM/MAGNESIUM/SIMETH 30 ML CUP PO PRN (14:45)
[2016-12-01] MEDS ORDERED: ZOLPIDEM TARTRATE 5 MG TAB PO PRN (14:45)
[2016-12-01] MEDS ORDERED: SODIUM CHLORIDE 0.9% FLUSH 10 ML FLUSH IV FLUSH PRN (14:45)
[2016-12-01] MEDS ORDERED: ACETAMINOPHEN 325 MG TAB PO PRN (14:45)
[2016-12-01] MEDS ORDERED: ONDANSETRON ODT 4 MG TAB PO PRN (14:45)
--- NOTE | 2016-12-01 14:50 | PD.OB.DELI ---
Delivery Date: Dec 01, 2016 Anesthesia: Epidural Episiotomy: None Vaginal Delivery: Vacuum (vacuum assisted, no pop-offs), Presentation: Occiput anterior Nuchal Cord: None : Male One Minute : 8 Five Minute : 9 Weight: 2680g Placenta: Spontaneous delivery, Intact, 3 vessel cord, Cord pH Laceration: No lacerations Additional Information Vaginal delivery, assisted with vacuum x1 due to bradycardia, no pop- offs. Apgars 8/9. Placenta delivered spontaneously, intact. EBL 250ml (Eren Armendariz MD R1) Additional Information 26 yo @ 37 weeks presented in active labor @ 6cm dilation. Desired SANTA. GBS +and received PCN for prophylaxis. FSE/IUPC placed for monitoring. Epidural received for anesthesia. Terminal bradycardia in stage II labor. +3 station. OA position. VAVD with single application of KIWI and 4 pushes ( single contraction). No pop-offs. Placenta spontaneous and intact, grossly normal. EBL 200ml. No lacerations. (Rubina Berry MD) Eren Armendariz MD R1 Dec 01, 2016 14:50 Rubina Berry MD Dec 01, 2016 14:59
[2016-12-01] MEDS ORDERED: DIPHTH/TETANUS/ACEL PERTUSSIS (BOOSTER) 0.5 ML VIAL/PFS IM ONE (16:00)
[2016-12-01] MEDS ORDERED: MEASLES, MUMPS, RUBELLA VACCINE 0.5 ML VIAL SQ ONE (16:00)
[2016-12-01] MEDS ORDERED: SODIUM CHLORIDE 0.9% FLUSH 10 ML FLUSH IV FLUSH SCH (21:00)
[2016-12-01] MEDS: IBUPROFEN 600 MG TAB PO PRN (22:02)
[2016-12-01] MEDS: oxyCODONE/ACETAMINOPHEN 5 MG/325 MG TAB PO PRN (22:02)
[2016-12-01 22:43] LABS: AMPHETAMINE, URINE NEG (NEG); BARBITURATES, URINE NEG (NEG); COCAINE, URINE NEG (NEG)
[2016-12-02] MEDS: oxyCODONE/ACETAMINOPHEN 5 MG/325 MG TAB PO PRN ×2 (02:05→18:21)
[2016-12-02] MEDS: IBUPROFEN 600 MG TAB PO PRN ×3 (04:41→18:23)
--- NOTE | 2016-12-02 08:17 | HHI.OB ---
Subjective Post Day: 1 Remarks day #1. AFVSS overnight. Pain well-controlled medications. Decreased lochia. Denies dysuria. No breast tenderness. She is feeding the baby via formula. Appetite good. No nausea or vomiting. Endorses flatus. No bowel movement. Ambulating without difficulty. Denies calf pain, shortness of breath, or cough. Otherwise, she is doing well this morning and has no other complaints. (Eren Armendariz MD R1) Objective Vitals/I&O Vital Signs Date Time Temp Pulse Resp B/P Pulse Ox O2 Delivery O2 Flow Rate FiO2 12/01/16 17:53 62 16 143/76 12/01/16 17:53 99.0 12/01/16 16:58 69 127/92 12/01/16 16:58 18 12/01/16 16:15 18 12/01/16 16:15 84 111/82 12/01/16 16:01 71 125/62 12/01/16 16:00 18 12/01/16 15:45 66 119/65 12/01/16 15:45 18 12/01/16 15:31 79 113/70 12/01/16 15:30 18 12/01/16 15:16 73 127/75 12/01/16 15:12 18 12/01/16 15:01 88 124/74 12/01/16 14:57 98.0 12/01/16 14:55 81 128/76 12/01/16 14:52 74 130/69 12/01/16 14:50 18 12/01/16 14:01 104 106/79 12/01/16 13:50 18 12/01/16 13:30 71 125/83 12/01/16 13:25 68 121/74 12/01/16 13:03 75 132/88 12/01/16 13:00 78 12/01/16 12:52 73 18 125/90 12/01/16 12:30 82 109/62 12/01/16 12:03 98.0 12/01/16 12:01 71 117/62 12/01/16 11:59 18 12/01/16 11:45 165 130/83 12/01/16 11:31 76 130/81 12/01/16 11:16 97 124/64 12/01/16 11:15 18 12/01/16 11:05 93 12/01/16 11:00 103 12/01/16 11:00 115 122/93 12/01/16 10:55 98 12/01/16 10:50 88 12/01/16 10:46 152 101/66 12/01/16 10:41 99 12/01/16 10:40 92 12/01/16 10:30 104 126/75 12/01/16 10:26 91 126/84 12/01/16 10:23 86 122/62 12/01/16 10:23 18 12/01/16 10:21 18 12/01/16 10:20 108 12/01/16 10:16 86 128/93 12/01/16 10:15 92 12/01/16 10:13 91 136/86 12/01/16 10:10 81 149/87 12/01/16 10:10 94 12/01/16 10:08 83 144/85 12/01/16 10:05 91 12/01/16 09:46 98.3 Objective Remarks GENERAL: Well-nourished, well-developed patient. CARDIOVASCULAR: Regular rate and rhythm without murmurs, gallops, or rubs. RESPIRATORY: Breath sounds equal bilaterally. No accessory muscle use. ABDOMEN/GI: Abdomen soft, non-tender. Fundus: Firm, non-tender at umbilicus. GENITOURINARY: Light to moderate bleeding. EXTREMITIES: No cyanosis or edema, non-tender, without signs of DVT. Medications and IVs Current Medications Medications (Trade) Dose Ordered Sig/Silvano Route Start Time Stop Time Status Last Admin Lactated Ringer's 1,000 ml @ 125 mls/hr Q8H IV 12/01/16 09:25 12/01/16 12:52 Lactated Ringer's 1,000 ml @ 3,000 mls/hr Q20M PRN IV 12/01/16 09:25 (NS 1000 ml Inj) 1,000 ml @ 100 mls/hr Q10H PRN IV 12/01/16 09:45 (Zofran Inj) 4 mg Q6H PRN IV 12/01/16 09:30 12/01/16 14:12 (fentaNYL INJ) 50 mcg Q1H PRN IV PUSH 12/01/16 09:30 Fentanyl Citrate 100 mcg 100 mcg Q1H PRN IV PUSH 12/01/16 09:30 12/01/16 09:49 (Pfizerpen-G Inj/ NS Inj) 100 ml @ 200 mls/hr Q4H IV 12/01/16 14:00 Mineral Oil 10 ml 10 ml UNSCH PRN TOPICAL 12/01/16 09:30 (Pitocin 30 Units-NS 500 ml Premix) 500 ml @ 0 mls/hr TITRATE IV 12/01/16 12:15 12/01/16 12:51 (NS Flush) 2 ml BID IV FLUSH 12/01/16 21:00 (NS Flush) 2 ml UNSCH PRN IV FLUSH 12/01/16 14:45 (Tylenol) 650 mg Q4H PRN PO 12/01/16 14:45 (Motrin) 600 mg Q6H PRN PO 12/01/16 14:45 12/02/16 07:46 (Percocet 5-325 Mg) 1 tab Q4H PRN PO 12/01/16 14:45 12/02/16 02:05 (Percocet 5-325 Mg) 2 tab Q4H PRN PO 12/01/16 14:45 12/02/16 07:46 (Americaine 20% Top Spr) 1 spray Q4H PRN TOPICAL 12/01/16 14:45 (Tucks Pads) 1 applic QID PRN TOPICAL 12/01/16 14:45 (Dorene-Colace) 2 tab Q12H PRN PO 12/01/16 14:45 12/01/16 22:01 (Ambien) 5 mg HS PRN PO 12/01/16 14:45 (Mag-Al Plus Susp Liq) 15 ml Q8H PRN PO 12/01/16 14:45 (Zofran Odt) 4 mg Q6H PRN PO 12/01/16 14:45 (Eren Armendariz MD R1) Assessment/Plan Assessment and Plan 26y/o who is PPD#1 s/p . -Continue routine care. -Percocet and Motrin PRN pain. -Encouraged OOB. Advised pelvic rest for 6 wks. -Will need a f/u appt. within 6 wks. -Re: ctrl, she is undecided -D/c in 1-2 more days. wdw OB attending (Eren Armendariz MD R1) Attending Attestation PPD #1 s/p VAVD- Doing well. Bottlefeeding Continue PP care and observation Patient seen and examined. D/w Dr. Street and Dr. Armendariz (Rubina Berry MD) Eren Armendariz MD R1 Dec 02, 2016 08:17 Rubina Berry MD Dec 02, 2016 08:45
[2016-12-02 17:00] VITALS: BP 129/80; PULSE 72; RESP 18
[2016-12-03 07:50] VITALS: BP 139/83; PULSE 59
[2016-12-03 08:00] VITALS: RESP 16; TEMP 98
--- NOTE | 2016-12-03 08:15 | HHI.OB ---
Subjective Post Day: 2 Remarks day #2. AFVSS overnight. Pain minimal. Decreased lochia. Denies dysuria. No breast tenderness. She is feeding the baby via formula. Appetite good. No nausea or vomiting. Endorses flatus. No bowel movement. Ambulating well. Denies calf pain, shortness of breath, or cough. Otherwise, she is doing well this morning and has no other complaints. Objective Vitals/I&O Vital Signs Date Time Temp Pulse Resp B/P Pulse Ox O2 Delivery O2 Flow Rate FiO2 12/02/16 17:00 72 18 129/80 12/02/16 08:46 18 12/02/16 08:46 18 Objective Remarks GENERAL: Well-nourished, well-developed patient. CARDIOVASCULAR: Regular rate and rhythm without murmurs, gallops, or rubs. RESPIRATORY: Breath sounds equal bilaterally. No accessory muscle use. ABDOMEN/GI: Abdomen soft, non-tender. Fundus: Firm, non-tender at umbilicus. GENITOURINARY: Light to moderate bleeding. EXTREMITIES: No cyanosis or edema, non-tender, without signs of DVT. Medications and IVs Current Medications Medications (Trade) Dose Ordered Sig/Silvano Route Start Time Stop Time Status Last Admin Lactated Ringer's 1,000 ml @ 125 mls/hr Q8H IV 12/01/16 09:25 12/01/16 12:52 Lactated Ringer's 1,000 ml @ 3,000 mls/hr Q20M PRN IV 12/01/16 09:25 (NS 1000 ml Inj) 1,000 ml @ 100 mls/hr Q10H PRN IV 12/01/16 09:45 (Zofran Inj) 4 mg Q6H PRN IV 12/01/16 09:30 12/01/16 14:12 (fentaNYL INJ) 50 mcg Q1H PRN IV PUSH 12/01/16 09:30 Fentanyl Citrate 100 mcg 100 mcg Q1H PRN IV PUSH 12/01/16 09:30 12/01/16 09:49 (Pfizerpen-G Inj/ NS Inj) 100 ml @ 200 mls/hr Q4H IV 12/01/16 14:00 Mineral Oil 10 ml 10 ml UNSCH PRN TOPICAL 12/01/16 09:30 (Pitocin 30 Units-NS 500 ml Premix) 500 ml @ 0 mls/hr TITRATE IV 12/01/16 12:15 12/01/16 12:51 (NS Flush) 2 ml BID IV FLUSH 12/01/16 21:00 (NS Flush) 2 ml UNSCH PRN IV FLUSH 12/01/16 14:45 (Tylenol) 650 mg Q4H PRN PO 12/01/16 14:45 (Motrin) 600 mg Q6H PRN PO 12/01/16 14:45 12/02/16 18:23 (Percocet 5-325 Mg) 1 tab Q4H PRN PO 12/01/16 14:45 12/02/16 18:21 (Percocet 5-325 Mg) 2 tab Q4H PRN PO 12/01/16 14:45 12/02/16 07:46 (Americaine 20% Top Spr) 1 spray Q4H PRN TOPICAL 12/01/16 14:45 (Tucks Pads) 1 applic QID PRN TOPICAL 12/01/16 14:45 (Dorene-Colace) 2 tab Q12H PRN PO 12/01/16 14:45 12/01/16 22:01 (Ambien) 5 mg HS PRN PO 12/01/16 14:45 (Mag-Al Plus Susp Liq) 15 ml Q8H PRN PO 12/01/16 14:45 (Zofran Odt) 4 mg Q6H PRN PO 12/01/16 14:45 Assessment/Plan Assessment and Plan 26y/o who is PPD#2 s/p . -Continue routine care. -Percocet and Motrin PRN pain. -Encouraged OOB. Advised pelvic rest for 6 wks. -Will need a f/u appt. within 6 wks. -Re: ctrl, she is undecided -D/c later today wdw OB attending Eren Armendariz MD R1 Dec 03, 2016 08:15
[2016-12-03] MEDS ORDERED: IBUP-232 PO (08:18)
[2016-12-03] MEDS ORDERED: SENN1TAB PO (08:18)
--- NOTE | 2016-12-03 08:18 | HHI.DCPOC ---
Discharge Care Plan Diagnosis: (1) (2) Previous section Goals to Promote Your Health * To prevent worsening of your condition and complications * To maintain your health at the optimal level Directions to Meet Your Goals Take your medications as prescribed Follow your dietary instruction Follow activity as directed Keep your appointments as scheduled Take your immunizations and boosters as scheduled If your symptoms worsen call your PCP, if no PCP go to Urgent Care Center or Emergency Room Smoking is Dangerous to Your Health. Avoid second hand smoke Call the 24-hour hour crisis hotline for domestic abuse at Eren Armendariz MD R1 Dec 03, 2016 08:18
[2016-12-03] MEDS: IBUPROFEN 600 MG TAB PO PRN (13:08)
== END 2016-12-03 14:25 | disposition home or self-care (01) | DRG 775 ==
LOC: HOBED 08:57 → H2EA 09:34 → H1EA 17:34
PROVIDERS: ADMIT Obstetrics & Gynecology Maternal & Fetal Medicine; ATTEND Obstetrics & Gynecology Maternal & Fetal Medicine
PROC: 10D07Z6 Extraction of Products of Conception, Vacuum, Via Natural or Artificial Opening (ICD-10-PCS; principal; 2016-12-01)
PROC: 00HU33Z Insertion of Infusion Device into Spinal Canal, Percutaneous Approach (ICD-10-PCS; 2016-12-01)
PROC: 3E0R3CZ (ICD-10-PCS; 2016-12-01)
DX: O99.824 Streptococcus B carrier state complicating childbirth (principal); O34.219 Maternal care for unspecified type scar from previous cesarean delivery; Z37.0 Single live birth; O76 Abnormality in fetal heart rate and rhythm complicating labor and delivery; Z3A.37 37 weeks gestation of pregnancy
CPT/HCPCS: 59025; 80307; 81001; 82805; 84112; 85025; 90715; 99285; G0481; J2405; J2540; J2590; J3010; J7120

== ENCOUNTER 2017-04-13 17:07 | Emergency (ER) | payer SELFPAY ==
[~2017-04-13] VITALS: Ht 154.9 cm; Wt 69.0 kg
[~2017-04-13 17:07] MED LIST changes: +IBUP-232 PO; -OXYC1TAB35 PO; +SENN1TAB PO; -ZOFR4TAB3 SL
[2017-04-13 17:08] VITALS: BP 119/80; PULSE 110; RESP 20; TEMP 100.4; O2SAT 98
[2017-04-13] MEDS ORDERED: ACETAMINOPHEN 325 MG TAB PO ONE (18:45)
[2017-04-13 19:12] LABS: BACTERIA, URINE MANY /hpf; BLOOD, URINE NEG (NEG); COMMENT (UR) CULTURE INDICATED; CULTURE IF INDICATED CULTURE INDICATED; GLUCOSE,URINE NEG (NEG); KETONE, URINE NEG (NEG); MUCUS URINE FEW /lpf (OCC); NITRITE,URINE POS (NEG); SQUAMOUS EPITHELIAL CELL URINE 1 /hpf (0-5); URINE COLOR YELLOW (YELLW/STRAW)
[2017-04-13] MEDS ORDERED: METR-1 PO ×2 (19:52→20:09)
[2017-04-13] MEDS ORDERED: DOXY100C PO ×2 (19:52→20:09)
[2017-04-13] MEDS ORDERED: DICL75TA PO ×2 (19:52→20:09)
[2017-04-13] MEDS ORDERED: LIDOCAINE HCL 1% 50 ML VIAL IM ONE (20:00)
[2017-04-13] MEDS ORDERED: cefTRIAXone 250 MG VIAL IM ONE (20:00)
[2017-04-13] MEDS ORDERED: DOXYCYCLINE HYCLATE 100 MG CAP PO ONE (20:00)
[2017-04-13] MEDS ORDERED: SULFAMETHOXAZOLE-TRIMETHOPRIM DS 800-160 MG TAB PO ONE (20:00)
[2017-04-13] MEDS ORDERED: metroNIDAZOLE 500 MG TAB PO ONE (20:00)
--- NOTE | 2017-04-13 20:08 | PD ---
HPI Chief Complaint: Boatswain Mate Problem/Complaint Time Seen by Provider: 18:29 Travel History International Travel<30 days: No Contact w/Intl Traveler<30days: No Traveled to known affect area: No History of Present Illness HPI 26-year-old female that presents to the ED for evaluation of vaginal discharge and pain. Per patient she's had this for the past 3 days. Per patient the discharge is foul smelling. Per patient she has pain of her lower belly. She also has dysuria and polyuria. She has a history of this in the past and denies STD at this time although she does state that she could be . She states that her pain currently 6 out of 10. She denies any fevers chills or sweats although she was found to have a fever here. She is able family with no issues. She denies any headache. No chest pain or shortness of breath. No other medical issues. PFSH Past Medical History Diminished Hearing: No Hypertension: Yes ?: Not LMP: 2 WEEKS : 3 Para: 2 : 1 Past Surgical History Section: Yes Social History Alcohol Use: No Tobacco Use: No Substance Use: No Allergies-Medications (Allergen,Severity, Reaction): Coded Allergies: No Known Allergies (Verified , 04/13/17) Reported Meds & Prescriptions Reported Meds & Active Scripts Active Diclofenac Sodium DR (Diclofenac Sodium) 75 Mg Tabdr 75 Mg PO BID PRN Doxycycline Hyclate 100 Mg Cap 100 Mg PO BID 10 Days Flagyl (Metronidazole) 500 Mg Tab 500 Mg PO BID 7 Days Review of Systems Except as stated in HPI: all other systems reviewed are Neg Physical Exam Narrative GENERAL: SKIN: Warm and dry. HEAD: Atraumatic. Normocephalic. EYES: Pupils equal and round. No scleral icterus. No injection or drainage. ENT: No nasal bleeding or discharge. Mucous membranes pink and moist. Tongue is midline. No uvula deviation. NECK: Trachea midline. No JVD. CARDIOVASCULAR: Regular rate and rhythm. No murmurs, S3, S4. RESPIRATORY: No accessory muscle use. Clear to auscultation. Breath sounds equal bilaterally. GASTROINTESTINAL: Abdomen soft, non-tender, nondistended. Hepatic and splenic margins not palpable. Pelvic exam: Seen with female nurse present, very tender on exam. Has foul smelling discharge noted like raw eggs. No adnexal tenderness. MUSCULOSKELETAL: Extremities without clubbing, cyanosis, or edema. No obvious deformities. Full range of motion of the upper and lower extremity bilaterally.2+ pulses bilaterally. NEUROLOGICAL: Awake and alert. No obvious cranial nerve deficits. Motor grossly within normal limits. Five out of 5 muscle strength in the arms and legs. Normal speech. PSYCHIATRIC: Appropriate mood and affect; insight and judgment normal. Data Data Last Documented VS Vital Signs Date Time Temp Pulse Resp B/P (MAP) Pulse Ox O2 Delivery O2 Flow Rate FiO2 04/13/17 17:08 100.4 110 20 119/80 (93) 98 Room Air Orders Orders Urinalysis - C+S If Indicated (04/13/17 18:29) Wet Prep Profile (04/13/17 18:29) Gc And Chlamydia Pcr (04/13/17 18:29) Ed Urine Pregnancytest Poc (04/13/17 18:29) Acetaminophen (Tylenol) (04/13/17 18:45) Urine Culture (04/13/17 18:40) Metronidazole (Flagyl) (04/13/17 20:00) Sulfamet-Trimeth Ds 800-160 Mg (Bactrim (04/13/17 20:00) Doxycycline (Vibramycin) (04/13/17 20:00) Ceftriaxone Inj (Rocephin Inj) (04/13/17 20:00) Lidocaine 1% Inj (50 Ml) (Xylocaine 1% I (04/13/17 20:00) Labs Laboratory Tests Test 04/13/17 18:40 04/13/17 18:55 Urine Color YELLOW Urine Turbidity HAZY Urine pH 7.0 Urine Specific Thornton 1.029 Urine Protein 30 mg/dL Urine Glucose (UA) NEG mg/dL Urine Ketones NEG mg/dL Urine Occult Blood NEG Urine Nitrite POS Urine Bilirubin NEG Urine Urobilinogen LESS THAN 2.0 MG/DL Urine Leukocyte Esterase MOD Urine RBC 6 /hpf Urine WBC 10 /hpf Urine Squamous Epithelial Cells 1 /hpf Urine Amorphous Sediment RARE Urine Bacteria MANY /hpf Urine Mucus FEW /lpf Microscopic Urinalysis Comment CULTURE INDICATED Clue Cells (Wet Prep) PRESENT Vaginal Trichomonas (Wet Prep) NONE SEEN Vaginal Yeast (Wet Prep) NONE SEEN MDM Medical Decision Making Medical Screen Exam Complete: Yes Emergency Medical Condition: Yes Medical Record Reviewed: Yes Interpretation(s) UA shows UTI wet prep positive for clue cells. Differential Diagnosis STD versus cervicitis versus bacterial vaginosis versus PID Narrative Course 26-year-old female that presents to the ED for evaluation of vaginal discharge and pain. Patient was properly examined and was found to have signs and symptoms consistent what appears to be cervicitis and possible PID. Patient does have a slight fever here. Patient was given Tylenol here. Labs came back consistent with UTI what appears to be bacterial vaginosis. Gonorrhea and chlamydia tests still pending. At this time I recommend prophylactic treatment secondary to her symptoms and significant tenderness with examination. She will be given ceftriaxone, doxycycline to cover for both UTI and possible chlamydia as well as Flagyl to cover for bacterial vaginosis. She was given a prescription for diclofenac sodium for pain. She was told to follow closely with PCP. See ED worsening symptoms. No sex for 2 weeks. Diagnosis Primary Impression: Acute cervicitis Additional Impressions: PID (acute pelvic inflammatory disease) UTI (urinary tract infection) Qualified Codes: N30.00 - Acute cystitis without hematuria Patient Instructions: General Instructions Additional Instructions: Take medications as prescribed. Follow with PCP. No sex for least 2 weeks. Always use protection. See ED if worsening symptoms. Med/Other Pt SpecificInfo: Prescription(s) given Scripts Diclofenac Sodium DR (Diclofenac Sodium DR) 75 Mg Tabdr 75 MG PO BID Y for PAIN SCALE 1 TO 10, #30 TAB 0 Refills Prov: Mini Barnett DO 04/13/17 Doxycycline Hyclate (Doxycycline Hyclate) 100 Mg Cap 100 MG PO BID for Infection for 10 Days, CAP 0 Refills Prov: Mnii Barnett DO 04/13/17 Metronidazole (Flagyl) 500 Mg Tab 500 MG PO BID for Infection for 7 Days, TAB 0 Refills Prov: Mini Barnett DO 04/13/17 Disposition: 01 DISCHARGE HOME Condition: Stable Ranjeet Sahu Apr 13, 2017 20:08
[2017-04-13] MEDS ORDERED: LIDOCAINE HCL 1% PF 2 ML VIAL ONE (20:19)
[2017-04-13 21:11] LABS: CHLAMYDIA PCR NOT DETECTED (NOT DETECT); NEISSERIA PCR NOT DETECTED (NOT DETECT)
== END 2017-04-13 21:10 | disposition home or self-care (01) ==
LOC: NEPE 17:07
DX: N72 Inflammatory disease of cervix uteri (principal); N73.9 Female pelvic inflammatory disease, unspecified; N30.00 Acute cystitis without hematuria; B96.20 Unspecified Escherichia coli [E. coli] as the cause of diseases classified elsewhere; I10 Essential (primary) hypertension
CPT/HCPCS: 81001; 84703; 87077; 87086; 87186; 87210; 87491; 87591; 96372; 99284; J0696